=== PATIENT | female | born 1940 | race African-American/Black ===

== ENCOUNTER 2023-12-31 11:34 | Emergency (ER) | payer OTHER ==
[~2023-12-31] VITALS: Ht 167.6 cm; Wt 77.0 kg
[2023-12-31 11:45] VITALS: O2SAT 100
[2023-12-31] MEDS ORDERED: ASPI-1406 MT (12:58)
[2023-12-31] MEDS ORDERED: SIMV-43 MT (12:58)
[2023-12-31] MEDS ORDERED: LISI20TA31 MT (12:58)
[2023-12-31] MEDS ORDERED: AMLO2.5T45 MT (12:58)
[2023-12-31] MEDS ORDERED: OXYB5TAB17 MT (12:58)
[2023-12-31 13:26] VITALS: BP 160/67; PULSE 77; RESP 18; TEMP 98.2
== END 2023-12-31 13:28 | disposition home or self-care (01) ==
LOC: ER 11:34
DX: I10 Essential (primary) hypertension (principal); E78.49 Other hyperlipidemia; N32.81 Overactive bladder; E11.9 Type 2 diabetes mellitus without complications; Z90.710 Acquired absence of both cervix and uterus; Z90.13 Acquired absence of bilateral breasts and nipples; Z98.890 Other specified postprocedural states
CPT/HCPCS: 99281